=== PATIENT | male | born 1960 | race Caucasian/White ===

== ENCOUNTER 2021-06-20 14:58 | Emergency (ER) | payer OTHER ==
[~2021-06-20] VITALS: Ht 182.9 cm; Wt 88.5 kg
--- NOTE | 2021-06-20 16:08 | NUR ---
BIB SELF C/O L FLANK PAIN X 2 DAYS. DENIES DYSURIA. DENIES HX OF KIDNEY STONES. [id number], BREATHING EVEN AND UNLABORED, ASSISTED TO ER BED 9.
--- NOTE | 2021-06-20 16:20 | NUR ---
URINE COLLECTED AND SENT
[2021-06-20 16:41] LABS: BILIRUBIN,URINE NEGATIVE (NEGATIVE); COLOR,URINE YELLOW (YELLOW); LEUKOCYTE ESTERASE ,URINE NEGATIVE (NEGATIVE); NITRITE, URINE NEGATIVE (NEGATIVE); PH,URINE 5.5 (5.0-8.0); PROTEIN,URINE NEGATIVE (NEGATIVE); UGLUCOSE NEGATIVE (NEGATIVE); UROBILINOGEN,URINE 0.2 EU/dL (0.2)
--- NOTE | 2021-06-20 17:15 | NUR ---
Pt sitting at edge of bed. No present complaints.
[2021-06-20 17:29] LABS: BACTERIA,URINE None seen /HPF (None Seen); WBC,URINE 0-2 /HPF (0-3)
[2021-06-20 17:30] LABS: SQUAMOUS EPITHELIAL CELL,UR 0-2 /HPF (None Seen)
[2021-06-20 17:39] LABS: BASOPHILS # (AUTO) 0.1 K/uL (0.0-0.2); BASOPHILS % (AUTO) 0.8 % (0.0-2.0); EOSINOPHILS % (AUTO) 2.8 % (0.0-6.0); HEMATOCRIT 46 % (39-51); HEMOGLOBIN 16.1 g/dL (13.5-17.5); LYMPHOCYTES % (AUTO) 32.8 % (20.0-44.0); MEAN CORPUSCULAR HGB CONC 35 g/dl (31.0-36.0); MEAN CORPUSCULAR VOLUME 93 fL (80-96); MONOCYTES # (AUTO) 0.5 K/uL (0.1-1.30); MONOCYTES % (AUTO) 5.2 % (2.0-12.0); NEUTROPHILS # (AUTO) 5.4 K/uL (1.8-8.9); NEUTROPHILS % (AUTO) 58.4 % (43.0-81.0); PLATELET COUNT (AUTO) 197 K/uL (150-450); RED BLOOD CELL COUNT(AUTO) 4.99 MIL/uL (4.5-6.0); WHITE BLOOD COUNT (AUTO) 9.2 K/uL (4.3-11.0)
--- NOTE | 2021-06-20 18:23 | NUR ---
Pt sitting in bed comfortably. Needs met
[2021-06-20] MEDS ORDERED: NAPR-1009 PO (18:27)
[2021-06-20] MEDS ORDERED: CYCL5TAB PO (18:27)
[2021-06-20 18:29] LABS: BILIRUBIN,DIRECT 0.1 mg/dL (0.0-0.2); BILIRUBIN,TOTAL 0.2 mg/dL (0.2-1.0); CALCIUM, SERUM 8.6 mg/dL (8.5-10.1); CREATININE 1.1 mg/dL (0.6-1.3); POTASSIUM 3.7 mmol/L (3.5-5.1); TOTAL PROTEIN, SERUM 7.1 g/dL (6.4-8.2)
[2021-06-20 19:16] VITALS: BP 128/77
== END 2021-06-20 19:17 | disposition home or self-care (01) ==
LOC: ER 15:06
DX: S39.012A Strain of muscle, fascia and tendon of lower back, initial encounter (principal); N50.3 Cyst of epididymis; X58.XXXA Exposure to other specified factors, initial encounter; Y93.89 Activity, other specified; Y92.89 Other specified places as the place of occurrence of the external cause; Y99.8 Other external cause status
CPT/HCPCS: 36415; 80048-TC; 80076-TC; 81001; 85025-TC